=== PATIENT | female | born 1970 | race Two or more races ===

== ENCOUNTER 2020-04-15 12:22 | Inpatient (IN) | payer MEDICAID, OTHER ==
[~2020-04-15] VITALS: Ht 152.4 cm; Wt 67.7 kg
[2020-04-15 13:00] LABS: Basophils # (auto) 0 10 ^3/uL (0-0.2); Basophils % (auto) 0.1 % (0.0-2.0); Eosinophils # (auto) 0 10 ^3/uL (0-0.8); Eosinophils % (auto) 0.2 % (0.0-7.0); Hematocrit 40.6 % (36.0-46.0); Hemoglobin 13.6 g/dL (12.2-16.2); Lymphocytes # (auto) 2.1 10 ^3/uL (0.4-5.4); Lymphocytes % (auto) 33.4 % (10.0-50.0); Mean Corpuscular Hemoglobin 29.5 pg (28.0-32.0); Mean Corpuscular Hgb Conc. 33.5 g/dL (32.0-36.0); Mean Corpuscular Volume 87.9 fL (80.0-100.0); Monocytes # (auto) 0.4 10 ^3/uL (0-1.3); Monocytes % (auto) 6.7 % (0.0-12.0); Neutrophils # (auto) 3.7 10 ^3/uL (1.6-8.6); Neutrophils % (auto) 59.6 % (37.0-80.0); Platelet Count (auto) 191 10^3/uL (140-450); Red Blood Cells 4.62 10^6/uL (4.0-5.20); Red Cell Distribution Width 13.2 % (11.8-14.3); White Blood Cell 6.2 10^3/uL (4.4-10.8)
[2020-04-15 13:13] LABS: Albumin 3.6 g/dL (3.4-5.0); Anion Gap 8 (5-15); Blood Urea Nitrogen 9 mg/dL (7-18); Calcium 8.7 mg/dL (8.5-10.1); Carbon Dioxide 25 mmol/L (21-32); Chloride 107 mmol/L (98-107); Glucose 106 mg/dL (74-106); Potassium 3.5 mmol/L (3.5-5.1); Sodium 140 mmol/L (136-145)
[2020-04-15 13:19] LABS: Alanine Aminotransferase 32 U/L (13-56); Alkaline Phosphatase 64 U/L (45-117); Aspartate Aminotransferase 23 U/L (15-37); BUN/Creatinine Ratio 12.7; Bilirubin, Total 0.9 mg/dL (0.2-1.0); GFR African American 112 mL/min; GFR Non-African American 92 mL/min; Total Protein 7.8 g/dL (6.4-8.2)
[2020-04-15] MEDS ORDERED: LACTULOSE 20Gm/30ML SOLN PO PRN (15:00)
[2020-04-15] MEDS ORDERED: TEMAZEPAM 15 MG CAP PO PRN (15:00)
[2020-04-15] MEDS ORDERED: PROMETHAZINE HCL 25 MG/ML 1ML IV PRN (15:00)
[2020-04-15] MEDS ORDERED: MORPHINE SULF INJ 2 MG/ML SYRINGE 1ML IV PRN (15:00)
[2020-04-15] MEDS ORDERED: NITROGLYCERIN 0.4 MG SL TAB SL PRN (15:00)
[2020-04-15] MEDS ORDERED: ACETAMINOPHEN 500 MG TAB PO PRN ×2 (15:00)
[2020-04-15] MEDS ORDERED: traMADol HCL 50 MG TAB PO PRN (15:00)
[2020-04-15] MEDS: SODIUM CHLORIDE 0.9% 1,000 ML IV SCH (15:16)
[2020-04-15] MEDS ORDERED: DEXTROSE (50%) 50ML SYRG IV PRN (15:30)
[2020-04-15 15:39] LABS: CRP High Sensitivity 0.59 mg/dL (< 0.3)
[2020-04-15] MEDS: ACCU-CHEK COMFORT CURVE STRIP VI SCH ×2 (17:00→22:37)
[2020-04-15] MEDS: InsuLIN REG 1unit/0.01ml Soln (100units/ml) SC SCH ×2 (17:47→21:20)
[2020-04-15] MEDS: ENOXAPARIN SOD 80 MG/0.8ML SYRINGE SC SCH (21:18)
[2020-04-15] MEDS: METOPROLOL TARTRATE 25 MG TAB PO SCH (21:19)
[2020-04-15] MEDS: ATORVASTATIN 20 MG TAB PO SCH (21:21)
[2020-04-15] MEDS ORDERED: ALBUTEROL SULF HFA 90MCG INH 200DOSE IN SCH (22:00)
[2020-04-15 22:30] VITALS: BP 140/71
[2020-04-15 23:00] VITALS: BP 140/71
[2020-04-16] MEDS ORDERED: METF-370 PO (01:22)
[2020-04-16] MEDS ORDERED: LISI-646 PO (01:22)
[2020-04-16] MEDS: SODIUM CHLORIDE 0.9% 1,000 ML IV SCH ×2 (04:15→17:35)
[2020-04-16 05:00] VITALS: BP 112/64
[2020-04-16] MEDS: InsuLIN REG 1unit/0.01ml Soln (100units/ml) SC SCH ×4 (06:15→23:31)
[2020-04-16] MEDS: ACCU-CHEK COMFORT CURVE STRIP VI SCH ×4 (06:16→23:31)
[2020-04-16 07:26] LABS: Cholesterol 134 mg/dL (< 200); HDL Cholesterol 34 mg/dL (40-59); LDL Cholesterol 89 mg/dL (< 100); Triglycerides 120 mg/dL (< 150)
[2020-04-16 09:00] VITALS: BP 123/76
[2020-04-16] MEDS: ZINC SULFATE 220mg CAP or TAB PO SCH (09:59)
[2020-04-16] MEDS: ASPirin 81 mg TAB PO SCH (09:59)
[2020-04-16] MEDS: METOPROLOL TARTRATE 25 MG TAB PO SCH ×2 (10:00→21:27)
[2020-04-16] MEDS ORDERED: NITROGLYCERIN 0.2MG/HR TOPICAL PATCH TD SCH (10:00)
[2020-04-16] MEDS: ASCORBIC ACID 1,000 MG TAB PO SCH (10:00)
[2020-04-16] MEDS: CHOLECALCIFEROL (VITD3) 1,000UNIT=25mCg TAB PO SCH (10:01)
[2020-04-16] MEDS: ENOXAPARIN SOD 80 MG/0.8ML SYRINGE SC SCH (10:01)
[2020-04-16 13:00] VITALS: BP 117/76
[2020-04-16] MEDS ORDERED: DEXTROSE (50%) 50ML SYRG IV PRN (13:30)
[2020-04-16 17:00] VITALS: BP 128/71
[2020-04-16] MEDS: PIPERACILLIN-TAZOB 3.375GM 100 ML IV SCH ×2 (17:18→23:24)
[2020-04-16] MEDS: FAMOTIDINE 20 MG TAB PO SCH (21:28)
[2020-04-16] MEDS: ENOXAPARIN SOD 60 MG/0.6 ML SYRINGE SC SCH (21:28)
[2020-04-16] MEDS: ATORVASTATIN 20 MG TAB PO SCH (21:30)
[2020-04-16 22:00] VITALS: BP 113/72
[2020-04-17] MEDS: ACCU-CHEK COMFORT CURVE STRIP VI SCH ×3 (05:19→17:26)
[2020-04-17] MEDS: InsuLIN REG 1unit/0.01ml Soln (100units/ml) SC SCH ×3 (05:19→17:28)
[2020-04-17] MEDS: PIPERACILLIN-TAZOB 3.375GM 100 ML IV SCH ×3 (05:20→17:25)
[2020-04-17 05:30] VITALS: BP 121/75
[2020-04-17 07:50] LABS: Basophils # (auto) 0 10 ^3/uL (0-0.2); Basophils % (auto) 0.3 % (0.0-2.0); Eosinophils # (auto) 0 10 ^3/uL (0-0.8); Eosinophils % (auto) 0.7 % (0.0-7.0); Hematocrit 37.8 % (36.0-46.0); Hemoglobin 12.5 g/dL (12.2-16.2); Lymphocytes # (auto) 1.8 10 ^3/uL (0.4-5.4); Mean Corpuscular Hemoglobin 29.3 pg (28.0-32.0); Mean Corpuscular Hgb Conc. 33.2 g/dL (32.0-36.0); Mean Corpuscular Volume 88.2 fL (80.0-100.0); Monocytes # (auto) 0.3 10 ^3/uL (0-1.3); Monocytes % (auto) 6.4 % (0.0-12.0); Neutrophils # (auto) 2.9 10 ^3/uL (1.6-8.6); Neutrophils % (auto) 56.6 % (37.0-80.0); Nucleated Red Blood Cells % 0.1 %; Platelet Count (auto) 195 10^3/uL (140-450); Red Blood Cells 4.28 10^6/uL (4.0-5.20); Red Cell Distribution Width 13.5 % (11.8-14.3); White Blood Cell 5.1 10^3/uL (4.4-10.8)
[2020-04-17 08:11] LABS: BUN/Creatinine Ratio 12.5; CRP High Sensitivity 0.9 mg/dL (< 0.3); Calcium 8.4 mg/dL (8.5-10.1); Potassium 3.8 mmol/L (3.5-5.1)
[2020-04-17 09:00] VITALS: BP 111/70
[2020-04-17] MEDS: METOPROLOL TARTRATE 25 MG TAB PO SCH ×2 (09:08→23:04)
[2020-04-17] MEDS: CHOLECALCIFEROL (VITD3) 1,000UNIT=25mCg TAB PO SCH (09:09)
[2020-04-17] MEDS: ASCORBIC ACID 1,000 MG TAB PO SCH (09:09)
[2020-04-17] MEDS: FAMOTIDINE 20 MG TAB PO SCH ×2 (09:09→23:04)
[2020-04-17] MEDS: ENOXAPARIN SOD 60 MG/0.6 ML SYRINGE SC SCH ×2 (09:09→23:04)
[2020-04-17] MEDS: ASPirin 81 mg TAB PO SCH (09:10)
[2020-04-17] MEDS: ZINC SULFATE 220mg CAP or TAB PO SCH (09:10)
[2020-04-17] MEDS: DexAMETHasone SOD PHOS 10MG/1ML VIAL INJ IV SCH (09:24)
[2020-04-17] MEDS: SODIUM CHLORIDE 0.9% 1,000 ML IV SCH (09:45)
[2020-04-17 12:50] VITALS: BP 123/76
[2020-04-17 16:50] VITALS: BP 127/76
[2020-04-17 22:00] VITALS: BP 124/73
[2020-04-17] MEDS: ATORVASTATIN 20 MG TAB PO SCH (23:03)
[2020-04-18] MEDS: PIPERACILLIN-TAZOB 3.375GM 100 ML IV SCH ×4 (00:38→18:00)
[2020-04-18] MEDS: ACCU-CHEK COMFORT CURVE STRIP VI SCH ×4 (00:38→18:00)
[2020-04-18] MEDS: InsuLIN REG 1unit/0.01ml Soln (100units/ml) SC SCH ×4 (00:39→18:00)
[2020-04-18 05:00] VITALS: BP 132/84
[2020-04-18 08:10] VITALS: BP 133/73
[2020-04-18 08:50] VITALS: BP 133/73
[2020-04-18] MEDS: METOPROLOL TARTRATE 25 MG TAB PO SCH (10:00)
[2020-04-18] MEDS: DexAMETHasone SOD PHOS 10MG/1ML VIAL INJ IV SCH (10:34)
[2020-04-18] MEDS: FAMOTIDINE 20 MG TAB PO SCH (10:34)
[2020-04-18] MEDS: CHOLECALCIFEROL (VITD3) 1,000UNIT=25mCg TAB PO SCH (10:34)
[2020-04-18] MEDS: ASPirin 81 mg TAB PO SCH (10:35)
[2020-04-18] MEDS: ZINC SULFATE 220mg CAP or TAB PO SCH (10:36)
[2020-04-18] MEDS: ASCORBIC ACID 1,000 MG TAB PO SCH (10:36)
[2020-04-18] MEDS: ENOXAPARIN SOD 60 MG/0.6 ML SYRINGE SC SCH (10:38)
[2020-04-18] MEDS ORDERED: ALBU108A5 IN (10:57)
[2020-04-18] MEDS ORDERED: FAMO20TA10 PO (10:57)
[2020-04-18] MEDS ORDERED: AZIT500T66 PO (10:57)
[2020-04-18] MEDS ORDERED: DEX4T PO (10:57)
[2020-04-18 13:00] VITALS: BP 139/79
[2020-04-18 17:00] VITALS: BP 118/72
[2020-04-18 17:23] VITALS: BP 118/72
== END 2020-04-18 21:00 | disposition home health service (06) | DRG 137 ==
LOC: EDBD 12:22 → ER 12:22 → TELE 12:23 → TELE-EAST 22:15
PROVIDERS: ADMIT Internal Medicine; ATTEND Hospitalist
DX: U07.1 COVID-19 (principal); J96.01 Acute respiratory failure with hypoxia; E11.9 Type 2 diabetes mellitus without complications; I10 Essential (primary) hypertension; E87.6 Hypokalemia; E66.9 Obesity, unspecified; J12.89 Other viral pneumonia; E78.5 Hyperlipidemia, unspecified; Z82.49 Family history of ischemic heart disease and other diseases of the circulatory system; Z83.3 Family history of diabetes mellitus; Z68.29 Body mass index [BMI] 29.0-29.9, adult
CPT/HCPCS: 36415; 71045; 80048; 80053; 80061; 82550; 82728; 82962; 83036; 83605; 83615; 84484; 85025; 85379; 85652; 86141; 87040; 87070; 87804; 87880; 93005; G0378; J1100; J1815; J2543